=== PATIENT | female | born 1940 | race Caucasian/White ===

== ENCOUNTER → 2018-06-01 | Outpatient (CLI) | payer MEDICARE, OTHER ==
[~2018-06-01] MED LIST: AMLO5; ASPI325 PO; ASPI81CH PO; ATOR40TA PO; CALCA500CH PO; CITA20 PO; CITALOPRAM PO; CLOP75 PO; EFFIENT10 MG PO; ESTR.625; ESTR2 PO; ETOD500 PO; ISOMON20; LEVSOD125; LEVSOD150 PO; METO25ER PO; NITR.4SL SL; ONDA4ODT MM; PRED10 PO; Percocet 5-3251 EACH PO
== END | disposition home or self-care (01) ==
LOC: LAB EV 09:00
DX: R23.2 Flushing (principal); L21.8 Other seborrheic dermatitis; L70.8 Other acne
CPT/HCPCS: 81050

== ENCOUNTER → 2018-12-01 | Outpatient (CLI) | payer MEDICARE, OTHER | LOC: LAB 16:56 → LAB SHORT 16:56 | DX: L43.8 Other lichen planus (principal) | CPT/HCPCS: 87070; 87205 ==

== ENCOUNTER 2019-05-26 00:44 | Emergency (ER) | payer MEDICARE, OTHER ==
[~2019-05-26] VITALS: Ht 157.5 cm; Wt 69.4 kg
[2019-05-26 01:18] LABS: BASOPHILS ABSOLUTE AUTO 0.03 K/mm3 (0.00-0.23); BASOPHILS PERCENT AUTO 0 % (0-2); EOSINOPHILS PERCENT AUTO 7 % (0-6); Hematocrit 39.8 % (33.0-51.0); IMMATURE GRAN ABSOLUTE AUTO 0.02 K/mm3 (0.00-0.10); IMMATURE GRAN PERCENT AUTO 0 % (0-1); LYMPHOCYTES ABSOLUTE AUTO 2.37 K/mm3 (0.84-5.20); LYMPHOCYTES PERCENT AUTO 32 % (21-46); MONOCYTES ABSOLUTE AUTO 0.72 K/mm3 (0.16-1.47); MONOCYTES PERCENT AUTO 10 % (4-13); Mean Corpuscular HGB 32.4 pg (26.0-34.0); Mean Corpuscular HGB Conc 32.7 g/dL (31.5-36.5); Mean Corpuscular Volume 99 fL (80-100); Mean Platelet Volume 10.4 fL (9.1-12.4); NEUTROPHILS ABSOLUTE AUTO 3.88 K/mm3 (1.96-9.15); NEUTROPHILS PERCENT AUTO 52 % (41-73); Platelet Count 156 K/mm3 (150-400); RDW Coefficient Variation 12.9 % (11.7-14.2); RDW Standard Deviation 47.2 fL (35.1-46.3); Red Blood Cell Count 4.01 M/mm3 (3.80-5.20); White Blood Cell Count 7.52 K/mm3 (4.00-11.30)
[2019-05-26 01:40] LABS: Alanine Aminotransfer (ALT/SGP 31 U/L (12-78); Albumin, Blood 3.6 g/dL (3.4-5.0); Alk Phos 85 U/L (50-136); Anion Gap 5 mmol/L (6-16); Aspartate Aminotrans (AST/SGOT 28 U/L (12-37); Bilirubin, Total 0.3 mg/dL (0.1-1.0); Blood Urea Nitrogen 18 mg/dL (8-24); Bun/Creatinine Ratio 20.2 (12.0-20.0); CO2, Blood 29 mmol/L (21-32); Chloride, Blood 107 mmol/L (98-108); Creatinine, Blood 0.89 mg/dL (0.40-1.00); Globulin, Blood 3.7 g/dL (2.2-4.0); Glomerular Filtration Rate >60 (60-); Glucose, Blood 142 mg/dL (70-99); Potassium, Blood 3.9 mmol/L (3.5-5.5); Sodium, Blood 141 mmol/L (136-145); Total Protein, Blood 7.3 g/dL (6.4-8.2); Troponin I <0.015 ng/mL (0.000-0.040)
[2019-05-26] MEDS ORDERED: SYNTHROID100 MCG PO (02:56)
[2019-05-26] MEDS ORDERED: Lopressor 50 mg50 MG PO (02:56)
[2019-05-26] MEDS ORDERED: ATORVASTATIN CA40 MG PO (02:57)
[2019-05-26] MEDS ORDERED: Isosorbide Mono60 MG PO (02:57)
== END 2019-05-26 05:30 | disposition home or self-care (01) ==
LOC: ER 00:44
PROVIDERS: Emergency Medicine
DX: R07.89 Other chest pain (principal); I10 Essential (primary) hypertension; E03.9 Hypothyroidism, unspecified; Z79.899 Other long term (current) drug therapy; Z79.82 Long term (current) use of aspirin
CPT/HCPCS: 36415; 71045; 80053; 83690; 83880; 84484; 85025; 93005; 93010; 96361; 96374; 99284-25; J2060; J7030

== ENCOUNTER 2019-06-22 08:30 | Inpatient (IN) | payer MEDICARE, OTHER ==
[~2019-06-22] VITALS: Ht 157.5 cm; Wt 75.2 kg
[~2019-06-22 08:30] MED LIST changes: +ATORVASTATIN CA40 MG PO; +Isosorbide Mono60 MG PO; +Lopressor 50 mg50 MG PO; +SYNTHROID100 MCG PO
[2019-06-22 09:05] LABS: BASOPHILS ABSOLUTE AUTO 0.03 K/mm3 (0.00-0.23); BASOPHILS PERCENT AUTO 0 % (0-2); EOSINOPHILS ABSOLUTE AUTO 0.52 K/mm3 (0.00-0.68); EOSINOPHILS PERCENT AUTO 6 % (0-6); Hematocrit 42.8 % (33.0-51.0); Hemoglobin 14.1 g/dL (11.5-16.0); IMMATURE GRAN ABSOLUTE AUTO 0.03 K/mm3 (0.00-0.10); IMMATURE GRAN PERCENT AUTO 0 % (0-1); LYMPHOCYTES ABSOLUTE AUTO 2.53 K/mm3 (0.84-5.20); LYMPHOCYTES PERCENT AUTO 28 % (21-46); MONOCYTES ABSOLUTE AUTO 0.82 K/mm3 (0.16-1.47); MONOCYTES PERCENT AUTO 9 % (4-13); Mean Corpuscular HGB 33.1 pg (26.0-34.0); Mean Corpuscular HGB Conc 32.9 g/dL (31.5-36.5); Mean Corpuscular Volume 101 fL (80-100); Mean Platelet Volume 10.4 fL (9.1-12.4); NEUTROPHILS ABSOLUTE AUTO 5.22 K/mm3 (1.96-9.15); NEUTROPHILS PERCENT AUTO 57 % (41-73); Platelet Count 176 K/mm3 (150-400); RDW Coefficient Variation 12.9 % (11.7-14.2); RDW Standard Deviation 47.8 fL (35.1-46.3); Red Blood Cell Count 4.26 M/mm3 (3.80-5.20); White Blood Cell Count 9.15 K/mm3 (4.00-11.30)
[2019-06-22 09:28] LABS: Alanine Aminotransfer (ALT/SGP 39 U/L (12-78); Albumin, Blood 3.6 g/dL (3.4-5.0); Alk Phos 86 U/L (50-136); Anion Gap 9 mmol/L (6-16); Aspartate Aminotrans (AST/SGOT 33 U/L (12-37); Bilirubin, Total 0.4 mg/dL (0.1-1.0); Blood Urea Nitrogen 18 mg/dL (8-24); CO2, Blood 26 mmol/L (21-32); Calcium, Blood 9.1 mg/dL (8.5-10.1); Chloride, Blood 105 mmol/L (98-108); Globulin, Blood 3.7 g/dL (2.2-4.0); Glomerular Filtration Rate 57 (60-); Glucose, Blood 181 mg/dL (70-99); Potassium, Blood 3.5 mmol/L (3.5-5.5); Sodium, Blood 140 mmol/L (136-145); Total Protein, Blood 7.3 g/dL (6.4-8.2); Troponin I <0.015 ng/mL (0.000-0.040)
--- NOTE | 2019-06-22 15:46 | NUR ---
RECIEVED REPORT FROM МАРИЯ COOK RN AT 1510. PATIENT TRANSPORTED BY STRETCHER TO ROOM 339 AND ARRIVED AT 1522. TRANSFERED SELF TO HOSPITAL BED INDEPENDANTLY. ASSESSMENT AND MED REQ COMPLETE WITH ASSISTANCE OF PATIENT.
--- NOTE | 2019-06-22 17:00 | NUR ---
SHIFT SUMMARY PATIENT IS PLEASANT AND COOPERATIVE WITH STAFF. DENIES PAIN AT THIS TIME. NO ACUTE CHANGES SINCE ADMIT TO THE FLOOR.
[2019-06-23 05:19] LABS: Anion Gap 8 mmol/L (6-16); Blood Urea Nitrogen 20 mg/dL (8-24); CO2, Blood 26 mmol/L (21-32); Calcium, Blood 8.9 mg/dL (8.5-10.1); Chloride, Blood 108 mmol/L (98-108); Creatinine, Blood 0.95 mg/dL (0.40-1.00); Glomerular Filtration Rate >60 (60-); Glucose, Blood 115 mg/dL (70-99); Potassium, Blood 4.2 mmol/L (3.5-5.5); Sodium, Blood 142 mmol/L (136-145)
--- NOTE | 2019-06-23 06:14 | NUR ---
SHIFT SUMMARY AOX4. NO ACUTE CHANGES T/O NIGHT. VS STABLE. TELE IN PLACE NSR W/BBB & HR 75 PER PCU SHINGLES ROOFER. DENIES N/V, SOB OR ANY CHEST PAIN/DISCOMFORT. REPORTS PAIN LEVEL IS 0/10. INDEPENDENT IN ROOM. PT HOPES SHE WILL BE DISCHARGED HOME TODAY. CALL LIGHT IN REACH & I WILL CONT. TO MONITOR.
[2019-06-23 10:49] LABS: International Normalized Ratio 1.03; Prothrombin Time Results 10.9 Sec (9.7-11.5)
--- NOTE | 2019-06-23 12:44 | NUR ---
PATIENT IS ALERT AND ORIENTED. NO COMPLAINTS OF CHEST PAIN TODAY. DR. EDGAR SAW THIS PATIENT THIS MONRING. THE PLAN IS FOR AN ANGIOGRAM THIS AFTERNOON. SHE IS NPO. WILL CONTINUE TO MONITOR.
--- NOTE | 2019-06-23 15:24 | NUR ---
PT ARRIVES FROM [place], ALERT, DROWSY BUT EASILY ARROUSABLE. RECIEVED 75MCG FENTANYL PRIOR TO LEAVING [place], PT ARRIVES C/O NO PAIN. TR BAND PLACED AT 1458, WITH 10ML AIR TO RT WRIST, NO ACTIVE BLEEDING OR DRAINAGE FROM THE SITE, PULSES INTACT, PT DENIES NUMBNESS OR TINGLING TO RT ARM OR HAND, FULL ROM OF FINGERS TO RT HAND.
--- NOTE | 2019-06-23 19:34 | NUR ---
PATIENT DISPLACED TR BAND PATIENT PULLED DOWN TR BAND - REMOVING IT OFF PCI SITE - BRIGHT RED OOZING NOTE - ECCOMYOSIS NOTED TO RIGHT THUMB. PRESSURE HELD ON RIGHT RADIAL AND TR BAND DEFLATED, REMOVED AND REPLACED IN CORRECT LOCATION AND REINFLATED WITTH 9 CC'S AIR. ARM BOARD PLACED. PATIENT EDUCATED EXTENSIVELY.
--- NOTE | 2019-06-23 19:40 | NUR ---
SHIFT NOTE PT ARRIVED TO PCU ROOM 5 SHORTLY AFTER 1500 TODAY, PT WAS ALERT, DROWSY, EASY TO ARROUSE. TR BAND WAS IN PLACE ON ARRIVAL, INCISION NOTED BELOW TR BAND SITE, NO BLEEDING OR OOZING NOTED TO SITE, PULSES INTACT. PT BECAME QUITE ANGRY T/O REMAINDER OF SHIFT, PT SHOVED FOOD TRAY AT THIS RN SCREAMING IV WAS BEEPING REMINDED THAT IV IS BEEPING HER ARM IS BENT. PT REPORTS GRIFFITHS WHICH SHE THEN BEGAN SCREAMING AT THIS RN WHILE ATTEMPTING TO ASSESS PAIN SCORE AND GRIFFITHS. PT TREATED WITH TYLENOL FOR GRIFFITHS. AT SHIFT CHANGE THIS RN AND ONCOMING RN TO ROOM TO REASSESS VITALS, PT HAS LOOSENED HER TR BAND AND MOVED THE BAND, THE INCISION IS NOW EXPOSED BUT WITH ONLY SLIGHT OOZING OF BLOOD NOTED FROM INCISION. ADDITIONAL STAFF TO ROOM TR BAND REPLACED BY BALJIT AND KING RNs. VSS REASSESSED, PT REPOSITIONED. BLEEDING REMAINS CONTROLLED, SLIGHT BRUISING NOTED BELOW TR BAND, PULSES INTACT
--- NOTE | 2019-06-24 05:41 | NUR ---
Patient A/O. VSS. At 1919 patient had moved TR band from puncture site, oozing present. CMS Intact. TR Band Reapplied to site. 2299 TR band removed. Bruising to right hand noted, CMS intact. No complaints of Pain. Ambulating to bathroom, voiding freely. Saline locked. Telemetry; SR with BBB. Repeat EKG done this A.M.
--- NOTE | 2019-06-24 08:49 | NUR ---
NURSING PCU DAYSHIFT: Assumed care of pt at approx 0700. A/O, cooperative w/most aspects of care though not compliant w/R radial site care. Denies any pain/discomfort at rest. Skin is fairly intact w/bruising noted to R hand/RFA, R radial site unchanged since report. Ambulates independently and w/o difficulty. Tele in place, NSR w/BBB, no c/o CP/pressure at rest, SBP 99 prior to a.m. meds, no noted edema. L/S cta t/o, O2 sat 99% on RA, c/o dyspnea and chest tightness/discomfort which follows exertion and worsens w/deep inspiration, no noted cough. Abd SNT, BT+, voiding w/o difficulty. PIV x1, s/l. No s/s of acute distress at this time. Provided education regarding importance of R radial site recovery compliance, pt did not verbalize or demonstrate understanding. Metoprolol held d/t dosing/VS parameters. Seen by stack supervisor, ok'd for discharge home, awaiting rounding from PMD. Pt denies any current needs or questions regarding plan of care, call light in reach, cont to monitor for any changes.
[2019-06-24] MEDS ORDERED: METO50ER PO (11:55)
--- NOTE | 2019-06-24 11:57 | NUR ---
NURSING PCU DISCHARGE SUMMARY: SBP improved t/o a.m. Seen by PMD, discharge home d/o received. Metoprolol administered as per d/o. Rx's called to [facility] pharmacy per pt request. PIV dc'd w/cath intact. Pt verbalized understanding of all written and verbal instructions. PCI info included w/discharge folder. Will escort pt from unit via w/c, monitor until discharge is completed.
[2019-06-24] MEDS ORDERED: CLOP75 PO (12:01)
== END 2019-06-24 13:35 | disposition home or self-care (01) | DRG 247 ==
LOC: ER 08:30 → MEDS 08:31 → PCU 06-23 15:06
PROVIDERS: Internal Medicine Cardiovascular Disease; Physician Assistant; ADMIT Internal Medicine Endocrinology, Diabetes & Metabolism
PROC: 027034Z Dilation of Coronary Artery, One Artery with Drug-eluting Intraluminal Device, Percutaneous Approach (ICD-10-PCS; principal; 2019-06-24)
PROC: 4A033BC Measurement of Arterial Pressure, Coronary, Percutaneous Approach (ICD-10-PCS; 2019-06-24)
PROC: 4A023N7 Measurement of Cardiac Sampling and Pressure, Left Heart, Percutaneous Approach (ICD-10-PCS; 2019-06-24)
PROC: B2111ZZ Fluoroscopy of Multiple Coronary Arteries using Low Osmolar Contrast (ICD-10-PCS; 2019-06-24)
DX: T82.855A Stenosis of coronary artery stent, initial encounter (principal); I25.110 Atherosclerotic heart disease of native coronary artery with unstable angina pectoris; E78.5 Hyperlipidemia, unspecified; E03.9 Hypothyroidism, unspecified; F32.9 Major depressive disorder, single episode, unspecified; Z79.82 Long term (current) use of aspirin; Z95.5 Presence of coronary angioplasty implant and graft; Z88.3 Allergy status to other anti-infective agents; I10 Essential (primary) hypertension
CPT/HCPCS: 36415; 71046; 80048; 80053; 83036; 84484; 85025; 85347; 85610; 86850; 86900; 86901; 90686; 92978; 93005; 93010; 93306; 93458; 93571; 93572; 96372; 96374; 99152; 99153; 99285-25; A9270; C1725; C1753; C1769; C1874; C1887; C1894; C9600; G0008; G0378; J0360; J1200; J1644; J1650; J1720; J2250; J2930; J3010; J7030; J7040; Q9967

== ENCOUNTER 2020-08-14 21:51 | Emergency (ER) | payer MEDICARE, OTHER ==
[~2020-08-14] VITALS: Ht 160 cm; Wt 80.3 kg
[~2020-08-14 21:51] MED LIST changes: +METO50ER PO
[2020-08-14] MEDS ORDERED: ASPI81CH PO (22:17)
[2020-08-14 22:42] LABS: BASOPHILS ABSOLUTE AUTO 0.04 K/mm3 (0.00-0.23); BASOPHILS PERCENT AUTO 0 % (0-2); EOSINOPHILS ABSOLUTE AUTO 0.46 K/mm3 (0.00-0.68); EOSINOPHILS PERCENT AUTO 5 % (0-6); Hematocrit 43.4 % (33.0-51.0); Hemoglobin 14.3 g/dL (11.5-16.0); IMMATURE GRAN ABSOLUTE AUTO 0.04 K/mm3 (0.00-0.10); IMMATURE GRAN PERCENT AUTO 0 % (0-1); LYMPHOCYTES ABSOLUTE AUTO 2.49 K/mm3 (0.84-5.20); LYMPHOCYTES PERCENT AUTO 26 % (21-46); MONOCYTES ABSOLUTE AUTO 0.97 K/mm3 (0.16-1.47); MONOCYTES PERCENT AUTO 10 % (4-13); Mean Corpuscular HGB 31.4 pg (26.0-34.0); Mean Corpuscular HGB Conc 32.9 g/dL (31.5-36.5); Mean Corpuscular Volume 95 fL (80-100); Mean Platelet Volume 10.7 fL (9.1-12.4); NEUTROPHILS ABSOLUTE AUTO 5.42 K/mm3 (1.96-9.15); NEUTROPHILS PERCENT AUTO 58 % (41-73); Platelet Count 163 K/mm3 (150-400); RDW Coefficient Variation 12.9 % (11.7-14.2); RDW Standard Deviation 45.8 fL (35.1-46.3); Red Blood Cell Count 4.56 M/mm3 (3.80-5.20); White Blood Cell Count 9.42 K/mm3 (4.00-11.30)
[2020-08-14 22:55] LABS: Albumin, Blood 3.5 g/dL (3.4-5.0); Albumin/Globulin Ratio 0.9 (0.8-1.8); Bilirubin, Total 0.3 mg/dL (0.1-1.0); Bun/Creatinine Ratio 11.3 (12.0-20.0); Calcium, Blood 9.2 mg/dL (8.5-10.1); Creatinine, Blood 0.98 mg/dL (0.40-1.00); Globulin, Blood 3.9 g/dL (2.2-4.0); Potassium, Blood 4.1 mmol/L (3.5-5.5); Total Protein, Blood 7.4 g/dL (6.4-8.2)
[2020-08-14 23:03] LABS: Source, Urine Clean Catch
[2020-08-14 23:07] LABS: Bilirubin, Urine Neg (Neg); Blood, Urine 3+ (Neg); Glucose Qualitative, Urine Neg (Neg); Ketones, Urine Neg (Neg); Leukocyte Esterase, Urine 3+ (Neg); Nitrite, Urine Neg (Neg); Protein, Urine Neg (Neg); Urobilinogen, Urine NORM (Normal)
[2020-08-14 23:08] LABS: Appearance, Urine Clear (Clear); Color, Urine Yellow (P-Yellow)
[2020-08-14 23:13] LABS: Bacteria Few /hpf; Red Blood Cells, Urine 0-2 /hpf (0-2); Squamous Epithelial Cells Few /hpf (Few)
[2020-08-14] MEDS ORDERED: Bactrim Ds Tab1 EACH PO (23:57)
== END 2020-08-15 00:19 | disposition home or self-care (01) ==
LOC: ER 21:51
PROVIDERS: Student in an Organized Health Care Education/Training Program
DX: N13.2 Hydronephrosis with renal and ureteral calculous obstruction (principal); I10 Essential (primary) hypertension; Z88.0 Allergy status to penicillin; Z91.040 Latex allergy status; Z88.8 Allergy status to other drugs, medicaments and biological substances; Z91.09 Other allergy status, other than to drugs and biological substances; Z88.3 Allergy status to other anti-infective agents; Z79.82 Long term (current) use of aspirin; Z79.899 Other long term (current) drug therapy; Z95.5 Presence of coronary angioplasty implant and graft
CPT/HCPCS: 36415; 71045; 74177; 80053; 81001; 85025; 87086; 93005; 93010; 96374-59; 99285-25; A9270-GY; J1885; J2405; Q9967